=== PATIENT | female | born 1950 | race Caucasian/White ===

== ENCOUNTER 2016-12-03 14:38 | Emergency (ER) | payer MEDICARE, BC ==
--- NOTE | 2016-12-03 16:20 | EDM.PDOC ---
ED HPI GENERAL MEDICAL PROBLEM - General Chief Complaint: Chest Pain Stated Complaint: CHEST PAIN Time Seen by Provider: 12/03/16 14:55 Source of Information: Reports: Patient, Family History Limitations: Reports: No limitations - History of Present Illness INITIAL COMMENTS - FREE TEXT/NARRATIVE: 65-year-old female who has been having some vague left anterior chest pain radiating through to her back over the past several days. It's worse with inspiration, however she has no cough, shortness of breath, nausea or vomiting, fever or chills, or recent trauma. Onset: unknown/unsure Duration: Day(s): (3 days) Location: Reports: chest Improves with: Reports: None Worsens with: Reports: Breathing Associated Symptoms: Reports: denies other symptoms - Related Data Allergies Allergy/AdvReac Type Severity Reaction Status Date / Time No Known Allergies Allergy Verified 01/02/16 08:33 Home Meds: Home Meds Lutein 20 mg PO DAILY 12/25/15 [History] Multivitamin with Minerals [Multiple Vitamin] 1 tab PO DAILY 12/25/15 [History] Elida-3 Fatty Acids/Fish Oil [Cvs Fish Oil 1,000 mg Softgel] 1 tab PO DAILY [History] traZODone 25 mg PO BEDTIME 12/25/15 [History] Nitroglycerin [Nitrostat] 0.4 mg SL ASDIRECTED 12/31/15 [History] Pramipexole Di-HCl [Mirapex] 0.125 mg PO DAILY 12/31/15 [History] valACYclovir [Valtrex] 2,000 mg PO ASDIRECTED 12/31/15 [History] Past Medical History HEENT History: Reports: Impaired vision Cardiovascular History: Reports: None Gastrointestinal History: Reports: None 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: Musculoskeletal History: Reports: Arthritis Neurological History: Reports: CVA 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 Oncologic (Cancer) History: Reports: Basal cell carcinoma Dermatologic History: Reports: Other (see below) Other Dermatologic History: basal cell on face and neck - Infectious Disease History Infectious Disease History: Reports: Chicken pox, Measles, Mumps - Past Surgical History Cardiovascular Surgical History: Reports: Percutaneous transluminal angioplasty GI Surgical History: Reports: Colonoscopy Female Surgical History: Reports: Tubal ligation Neurological Surgical History: Reports: None Musculoskeletal Surgical History: Reports: Carpal tunnel Dermatological Surgical History: Reports: Skin biopsy Social & Family History - Tobacco Use Smoking Status *Q: Never Smoker Second Hand Smoke Exposure: No - Caffeine Use Caffeine Use: Reports: Coffee - Alcohol Use Days Per Week of Alcohol Use: 4 Number of Drinks Per Day: 3 Total Drinks Per Week: 12 - Recreational Drug Use Recreational Drug Use: No ED ROS GENERAL - Review of Systems Review Of Systems: See Below Constitutional: Denies: fever, chills, malaise HEENT: Reports: No symptoms Respiratory: Reports: pleuritic chest pain. Denies: shortness of breath Cardiovascular: Reports: Chest pain. Denies: Lightheadedness, Palpitations GI/Abdominal: Reports: No symptoms Musculoskeletal: Reports: no symptoms Skin: Reports: no symptoms Neurological: Reports: no symptoms. Denies: headache Psychiatric: Reports: No symptoms ED EXAM, GENERAL - Physical Exam Exam: See Below Exam Limited By: No limitations General Appearance: alert, no apparent distress Eye Exam: bilateral eye: EOMI Head: atraumatic Neck: normal inspection Respiratory/Chest: no respiratory distress, lungs clear, other (I could not reproduce any chest wall tenderness) Cardiovascular: regular rate, rhythm GI/Abdominal: soft, non tender Extremities: normal inspection. No: pedal edema Neurological: alert, oriented Psychiatric: normal affect, normal mood Skin Exam: Warm, Dry EKG INTERPRETATION Rhythm: NSR Course - Vital Signs Last Recorded V/S: Last Vital Signs Temp 97.7 F 12/03/16 16:24 Pulse 61 12/03/16 16:24 Resp 20 12/03/16 16:24 BP 133/85 12/03/16 16:24 Pulse Ox 99 12/03/16 16:24 - Orders/Labs/Meds Orders: Active Orders 24 hr Category Date Time Status EKG Documentation Completion [RC] ASDIRECTED Care 12/03/16 15:10 Active Chest 2V [CR] Routine Exams 12/03/16 15:10 Taken EKG 12 Lead [EK] Routine Ther 12/03/16 15:10 Ordered Labs: Laboratory Tests 12/03/16 12/03/16 Range/Units 15:17 15:17 WBC 6.3 (4.5-11.0) K/uL RBC 4.40 (3.30-5.50) M/uL Hgb 11.6 L (12.0-15.0) g/dL Hct 37.0 (36.0-48.0) % MCV 84 (80-98) fL MCH 26 L (27-31) pg MCHC 31 L (32-36) % Plt Count 334 (150-400) K/uL Neut % (Auto) 65 (36-66) % Lymph % (Auto) 22 L (24-44) % Greenlee % (Auto) 11 H (2-6) % Eos % (Auto) 2 (2-4) % Baso % (Auto) 1 (0-1) % Sodium 139 L (140-148) mmol/L Potassium 4.5 (3.6-5.2) mmol/L Chloride 102 (100-108) mmol/L Carbon Dioxide 27 (21-32) mmol/L Anion Gap 14.5 H (5.0-14.0) mmol/L BUN 21 H (7-18) mg/dL Creatinine 1.3 H (0.6-1.0) mg/dL Est Cr Clr Drug Dosing TNP Estimated GFR (MDRD) 41 L (>60) Glucose 118 H (74-106) mg/dL Calcium 8.8 (8.5-10.1) mg/dL Total Bilirubin 0.3 (0.2-1.0) mg/dL AST 18 (15-37) U/L ALT 19 (12-78) U/L Alkaline Phosphatase 60 (46-116) U/L Troponin I < 0.017 (0.000-0.056) ng/mL Total Protein 6.9 (6.4-8.2) g/dL Albumin 4.0 (3.4-5.0) g/dL Globulin 2.9 (2.3-3.5) g/dL Albumin/Globulin Ratio 1.4 (1.2-2.2) - Re-Assessments/Exams Free Text/Narrative Re-Assessment/Exam: 12/03/16 17:32 EKG was done which was normal. CBC, CMP and troponin were obtained. Troponin was 0, CMP revealed a mildly elevated creatinine at 1.3 and decreased GFR. These were compared with past readings in the clinic and despite having a diagnosis of renal insufficiency, these levels more abnormal than past readings. Her troponin is 0. A two-view chest x-ray was also normal. 12/03/16 17:33 I believe this patient has a component of pleurisy of the left chest, however incidentally we found that her renal function is slowly worsening. She has a regular yearly check up coming up with her primary care provider so I encouraged her to recheck her renal function studies at that time. She will take some ibuprofen or naproxen for her pleurisy in the meantime and return if worsening. Departure - Departure Time of Disposition: 16:32 Disposition: Home, Self-Care 01 Condition: good Clinical Impression: Atypical chest pain, Pleurisy Instructions: Nonspecific Chest Pain, Pleurisy, [id number] Referrals: Panfilo Andrew MD [Primary Care Provider] - Forms: ED Department Discharge Care Plan Goals: Try ibuprofen or naproxen for the next 2-3 days, increase activity as tolerated and recheck with your primary provider as scheduled. Return sooner at any time a few feel you are worsening, or consider recheck in 5-6 days if not improving satisfactorily. - My Orders Last 24 Hours: My Active Orders 12/03/16 15:10 EKG Documentation Completion [RC] ASDIRECTED Chest 2V [CR] Routine EKG 12 Lead [EK] Routine - Assessment/Plan Last 24 Hours: My Active Orders 12/03/16 15:10 EKG Documentation Completion [RC] ASDIRECTED Chest 2V [CR] Routine EKG 12 Lead [EK] Routine
[2016-12-03 16:25] VITALS: BP 133/85
--- NOTE | 2016-12-04 09:40 | CR ---
Chest 2V HISTORY: Dyspnea FINDINGS: The heart and vascular structures are normal in appearance. No infiltrates or effusions ar e demonstrated. The skeletal structures are unremarkable. IMPRESSION: Negative exam.
== END 2016-12-03 16:32 | disposition home or self-care (01) ==
LOC: JP.ED 14:38
DX: R07.89 Other chest pain (principal); R09.1 Pleurisy; Z79.899 Other long term (current) drug therapy; Z86.73 Personal history of transient ischemic attack (TIA), and cerebral infarction without residual deficits; M19.90 Unspecified osteoarthritis, unspecified site; Z98.51 Tubal ligation status
CPT/HCPCS: 36415; 71020; 71020-26; 80053; 84484; 85025; 93005; 93010; 99285; 99285-25

== ENCOUNTER 2022-08-26 06:51 | Day surgery (SDC) | payer MEDICARE, BC ==
[~2022-08-26 06:51] MED LIST: Bupivacaine 0.5% 30 ML SDV ONE
[2022-08-26] MEDS ORDERED: Propofol 200 MG/20 ML SDV ONE ×2 (07:20→09:42)
[2022-08-26] MEDS ORDERED: Lidocaine 0.5% 50 ML SDV ONE (07:20)
[2022-08-26] MEDS ORDERED: Midazolam 1 MG/ML 2 ML SDV ONE ×2 (07:21→09:19)
[2022-08-26] MEDS ORDERED: fentaNYL 100 MCG/2 ML SDV ONE (07:21)
[2022-08-26] MEDS ORDERED: Lactated Ringers 1,000 ML IV SCH (07:30)
[2022-08-26] MEDS ORDERED: ceFAZolin 1 GM in Premix Bag 1 BAG IV ONE (07:30)
[2022-08-26 07:36] LABS: ESTIMATED GFR 54 mL/min (>60)
[2022-08-26] MEDS ORDERED: Nozin Nasal Sanitizer NASBOTH ONE (07:45)
[2022-08-26] MEDS ORDERED: Acetaminophen/HYDROcodone 325-5 MG Tab PO PRN (10:45)
[2022-08-26 11:31] VITALS: BP 152/76
[2022-08-26 12:03] VITALS: PULSE 147
== END 2022-08-26 12:05 | disposition home or self-care (01) ==
LOC: JP.SDS 06:51
PROVIDERS: ATTEND Specialist
DX: M18.12 Unilateral primary osteoarthritis of first carpometacarpal joint, left hand (principal); E78.00 Pure hypercholesterolemia, unspecified; N18.9 Chronic kidney disease, unspecified; Z79.899 Other long term (current) drug therapy
CPT/HCPCS: 25447; 36415; 80053; 85027; A9270; C1762; J0690; J2250; J2704; J3010; J3490; J7120

== ENCOUNTER 2023-08-18 05:51 | Day surgery (SDC) | payer MEDICARE, BC ==
[2023-08-18 06:20] LABS: HEMATOCRIT 41.1 % (34.3-46.0); HEMOGLOBIN 13.7 g/dL (11.2-15.5); MEAN CORPUSCULAR HEMOGLOBIN 31.3 pg (31.6-35.5); MEAN CORPUSCULAR HGB CONC 33.3 g/dL (31.6-35.5); MEAN CORPUSCULAR VOLUME 93.8 fL (81.4-99.0); RED BLOOD CELL COUNT 4.38 M/uL (3.77-5.24); WHITE BLOOD CELL COUNT,WBC 4.5 K/uL (3.2-11.0)
[2023-08-18] MEDS: Nozin Nasal Sanitizer NASBOTH ONE (06:24)
[2023-08-18] MEDS: Lactated Ringers 1,000 ML IV SCH (06:25)
[2023-08-18 06:41] LABS: A/G RATIO 1.1 (1.2-2.2); ALANINE AMINOTRANSFERASE,ALT 13 U/L (12-78); ALBUMIN 3.7 g/dL (3.4-5.0); ALKALINE PHOSPHATASE 99 U/L (46-116); ANION GAP 6.6 mmol/L (5.0-14.0); ASPARTATE AMNIOTRANSFERASE,AST 19 U/L (15-37); BILIRUBIN TOTAL 0.7 mg/dL (0.2-1.0); BLOOD UREA NITROGEN,BUN 20 mg/dL (7-18); CALCIUM 8.6 mg/dL (8.5-10.1); CARBON DIOXIDE,CO2 29 mmol/L (21-32); CHLORIDE,CL 104 mmol/L (100-108); EST CRCL DRUG DOSING (CG) 48.53 mL/min; ESTIMATED GFR 60 mL/min (>60); GLUCOSE RANDOM 99 mg/dL (74-106); POTASSIUM,K 3.8 mmol/L (3.6-5.2); SODIUM,NA 140 mmol/L (140-148)
[2023-08-18] MEDS ORDERED: Propofol 200 MG/20 ML SDV ONE (07:23)
[2023-08-18] MEDS ORDERED: Midazolam 1 MG/ML 2 ML SDV ONE (07:23)
[2023-08-18] MEDS ORDERED: fentaNYL 100 MCG/2 ML SDV ONE (07:23)
[2023-08-18] MEDS ORDERED: Lidocaine 0.5% 50 ML SDV ONE (07:26)
[2023-08-18] MEDS ORDERED: ceFAZolin 1 GM in Sodium Chloride 0.9% 50 ML IV ONE (07:30)
[2023-08-18] MEDS: ceFAZolin 1 GM in Premix Bag 1 BAG IV ONE (07:55)
[2023-08-18] MEDS: Bupivacaine 0.5% 30 ML SDV ONE (09:28)
[2023-08-18 10:34] VITALS: BP 143/67; PULSE 63
[2023-08-18] MEDS: Ondansetron 4 MG Tab.DIS PO ONE (10:47)
== END 2023-08-18 11:05 | disposition home or self-care (01) ==
LOC: JP.SDS 05:51
PROVIDERS: ATTEND Specialist
DX: M65.312 Trigger thumb, left thumb (principal); M65.4 Radial styloid tenosynovitis [de Quervain]; N18.30 Chronic kidney disease, stage 3 unspecified
CPT/HCPCS: 25000; 26055; 36415; 80053; 85027; A9270; J0690; J2250; J2704; J3010; J3490; J7120; Q0162

== ENCOUNTER 2024-07-24 07:41 | Day surgery (SDC) | payer MEDICARE, BC ==
[~2024-07-24 07:41] MED LIST changes: -Bupivacaine 0.5% 30 ML SDV ONE; +Midazolam 1 MG/ML 2 ML SDV ONE; +Propofol 200 MG/20 ML SDV ONE; +fentaNYL 100 MCG/2 ML SDV ONE
[2024-07-24 08:17] LABS: HEMATOCRIT 39.4 % (34.3-46.0); HEMOGLOBIN 13.4 g/dL (11.2-15.5); RED BLOOD CELL COUNT 4.19 M/uL (3.77-5.24); WHITE BLOOD CELL COUNT,WBC 4.6 K/uL (3.2-11.0)
[2024-07-24] MEDS: Nozin Nasal Sanitizer NASBOTH ONE (08:26)
[2024-07-24 08:37] LABS: A/G RATIO 1.1 (1.2-2.2); ALANINE AMINOTRANSFERASE,ALT 26 U/L (12-78); ALBUMIN 3.9 g/dL (3.4-5.0); ALKALINE PHOSPHATASE 100 U/L (46-116); ANION GAP 7.1 mmol/L (5.0-14.0); ASPARTATE AMNIOTRANSFERASE,AST 21 U/L (15-37); BILIRUBIN TOTAL 0.6 mg/dL (0.2-1.0); BLOOD UREA NITROGEN,BUN 21 mg/dL (7-18); CALCIUM 9.6 mg/dL (8.5-10.1); CARBON DIOXIDE,CO2 30 mmol/L (21-32); CHLORIDE,CL 105 mmol/L (100-108); CREATININE 1.1 mg/dL (0.6-1.0); EST CRCL DRUG DOSING (CG) 43.47 mL/min; ESTIMATED GFR 53 mL/min (>60); GLUCOSE RANDOM 108 mg/dL (74-106); POTASSIUM,K 4.3 mmol/L (3.6-5.2); PROTEIN TOTAL,TP 7.4 g/dL (6.4-8.2); SODIUM,NA 142 mmol/L (140-148)
[2024-07-24] MEDS: Lactated Ringers 1,000 ML IV SCH (08:41)
[2024-07-24] MEDS ORDERED: ceFAZolin 1 GM in Premix Bag 1 BAG IV SCH (09:00)
[2024-07-24] MEDS ORDERED: Lidocaine 0.5% 50 ML SDV ONE (10:14)
[2024-07-24] MEDS: ceFAZolin 1 GM in Premix Bag 1 BAG IV ONE (10:45)
[2024-07-24] MEDS: Bupivacaine 0.5% 30 ML SDV ONE (11:18)
[2024-07-24 12:13] VITALS: PULSE 63
[2024-07-24] MEDS: traMADol 50 MG Tab PO PRN (12:34)
[2024-07-24 13:12] VITALS: BP 160/73
== END 2024-07-24 13:10 | disposition home or self-care (01) ==
LOC: JP.SDS 07:41
PROVIDERS: ATTEND Specialist
DX: M65.4 Radial styloid tenosynovitis [de Quervain] (principal); E78.5 Hyperlipidemia, unspecified; N18.30 Chronic kidney disease, stage 3 unspecified; Z88.5 Allergy status to narcotic agent
CPT/HCPCS: 01810; 25000; 36415; 80053; 85027; A9270; J0665; J0689; J2250; J2704; J3010; J7120

== ENCOUNTER 2025-05-19 07:53 | Emergency (ER) | payer MEDICARE, BC ==
[2025-05-19 08:02] VITALS: BP 131/75; PULSE 84
== END 2025-05-19 10:37 | disposition home or self-care (01) ==
LOC: JP.ED 07:53
DX: M79.81 Nontraumatic hematoma of soft tissue (principal); M25.562 Pain in left knee; E78.00 Pure hypercholesterolemia, unspecified; Z86.73 Personal history of transient ischemic attack (TIA), and cerebral infarction without residual deficits; Z79.899 Other long term (current) drug therapy; Z88.5 Allergy status to narcotic agent
CPT/HCPCS: 73562-26-LT; 73562-LT; 99283

== ENCOUNTER 2025-09-03 08:35 | Inpatient (IN) | payer MEDICARE, BC ==
[2025-09-03 08:58] LABS: PLATELET COUNT,PLT 323.0 K/uL (130-375); RED BLOOD CELL COUNT 4.79 M/uL (3.77-5.24); WHITE BLOOD CELL COUNT,WBC 7.7 K/uL (3.2-11.0)
[2025-09-03] MEDS: Lactated Ringers 1,000 ML IV SCH (09:00)
[2025-09-03 09:17] LABS: A/G RATIO 1.2 (1.2-2.2); ALANINE AMINOTRANSFERASE,ALT 25 U/L (12-78); ASPARTATE AMNIOTRANSFERASE,AST 21 U/L (15-37); BILIRUBIN TOTAL 0.8 mg/dL (0.2-1.0); BLOOD UREA NITROGEN,BUN 19 mg/dL (7-18); CARBON DIOXIDE,CO2 30 mmol/L (21-32); CHLORIDE,CL 105 mmol/L (100-108); CREATININE 1.2 mg/dL (0.6-1.0); EST CRCL DRUG DOSING (CG) 39.25 mL/min; ESTIMATED GFR 48 mL/min (>60); GLUCOSE RANDOM 111 mg/dL (74-106); POTASSIUM,K 4.6 mmol/L (3.6-5.2); PROTEIN TOTAL,TP 7.8 g/dL (6.4-8.2); SODIUM,NA 142 mmol/L (140-148)
[2025-09-03] MEDS: Nozin Nasal Sanitizer NASBOTH SCH ×2 (09:44→21:56)
[2025-09-03] MEDS ORDERED: Lactated Ringers 1,000 ML IV SCH (09:45)
[2025-09-03] MEDS ORDERED: Ipratropium 0.03% Nasal Spray 30 ML Bot NASBOTH PRN (12:14)
[2025-09-03] MEDS ORDERED: Magnesium Hydroxide 400 MG/5 ML Susp 30 ML Cup PO PRN (12:17)
[2025-09-03] MEDS: Tranexamic Acid 680 MG in Sodium Chloride 0.9% 50 ML IV ONE (12:30)
[2025-09-03] MEDS ORDERED: fentaNYL 100 MCG/2 ML SDV ONE (12:34)
[2025-09-03] MEDS ORDERED: Midazolam 1 MG/ML 2 ML SDV ONE (12:34)
[2025-09-03] MEDS ORDERED: Ondansetron 4 MG/2 ML SDV ONE (12:35)
[2025-09-03] MEDS ORDERED: Dexamethasone 4 MG/ML SDV ONE (12:35)
[2025-09-03] MEDS ORDERED: Propofol 200 MG/20 ML SDV ONE (12:58)
[2025-09-03] MEDS: Ketorolac 15 MG/ML SDV IVPUSH ONE (18:36)
[2025-09-03] MEDS: Ondansetron 4 MG/2 ML SDV IVPUSH PRN (22:37)
[2025-09-04] MEDS ORDERED: [UNRECOGNIZED DRUG - OTHER] PO SCH (09:00)
[2025-09-04] MEDS ORDERED: POTASSIUM GLUCONATE 600 MG PO SCH (09:00)
[2025-09-04] MEDS ORDERED: Non-Formulary Medication 1 Each (Vit C/E/Zn/Coppr/Lutein/Zeaxan [Preservision Areds 2 Soft PO SCH (09:00)
[2025-09-04] MEDS ORDERED: Non-Formulary Medication 1 Each (Ubidecarenone [Co Q-10] 200 MG Capsule) PO SCH (09:00)
[2025-09-04] MEDS ORDERED: COLLAGEN PO SCH (09:00)
[2025-09-04] MEDS ORDERED: ASCORBIC ACID PO SCH (09:00)
[2025-09-04] MEDS ORDERED: BIOTIN PO SCH (09:00)
[2025-09-04] MEDS: Lactobacillus Rhamnosus GG (Probiotic) Cap PO SCH (09:23)
[2025-09-04] MEDS: Aspirin 325 MG Tab.EC PO SCH (09:23)
[2025-09-04] MEDS: Fish Oil/Omega-3 Fatty Acids 1 Gm Cap PO SCH (09:24)
[2025-09-04] MEDS: Multivitamins with Iron/Calcium/Folic Acid/Minerals Tab PO SCH (09:24)
[2025-09-04] MEDS: Cholecalciferol (Vitamin D3) 25 MCG Tab PO SCH (09:25)
[2025-09-05 13:14] VITALS: BP 143/69; PULSE 83
== END 2025-09-05 13:40 | disposition home or self-care (01) | DRG 470 ==
LOC: JP.SDS 08:35 → JP.MS 12:19 → JP.SDS 09-04 13:05 → JP.MS 09-04 13:06
PROVIDERS: ADMIT Specialist; ATTEND Specialist
PROC: 0SRD0J9 Replacement of Left Knee Joint with Synthetic Substitute, Cemented, Open Approach (ICD-10-PCS; principal; 2025-09-03 11:30)
DX: M17.12 Unilateral primary osteoarthritis, left knee (principal); H54.7 Unspecified visual loss; E78.00 Pure hypercholesterolemia, unspecified; M19.90 Unspecified osteoarthritis, unspecified site; E61.1 Iron deficiency; Z85.828 Personal history of other malignant neoplasm of skin; Z98.890 Other specified postprocedural states; Z88.8 Allergy status to other drugs, medicaments and biological substances; Z98.51 Tubal ligation status; Z86.73 Personal history of transient ischemic attack (TIA), and cerebral infarction without residual deficits; Z79.899 Other long term (current) drug therapy
CPT/HCPCS: 01402-QZ; 27447; 36415; 73560-26-LT; 73560-LT; 80053; 85027; 93005; 93010; 97110-GP; 97116-GP; 97161-GP; 97165-GO; A9270-GY; C1713; C1776; J0665; J0690; J1100; J1171; J1885; J2250; J2270; J2405; J2704; J3010; J7030; J7120